=== PATIENT | female | born 1975 | race Caucasian/White ===

== ENCOUNTER 2018-01-17 18:49 | Observation (INO) | payer BC ==
[2018-01-17] MEDS ORDERED: Ondansetron INJ* 2 MG/ML VIAL IV ONE (19:56)
[2018-01-17] MEDS ORDERED: NS 0.9% 1000 ML* 1,000 ML IV ONE (19:56)
[2018-01-17] MEDS ORDERED: Morphine VIAL* 10 MG/ML 1 ML VIAL IV ONE (19:56)
--- NOTE | 2018-01-17 20:09 | ED ---
Abdominal Pain/Female - HPI Summary HPI Summary: Complains of right-sided abdominal pain, N/V 1 starting this morning. Abdominal pain described as new onset, constant, sharp, 7/10. Denies fever, cough, sore throat, CP, SOB, change in urine, change in BM, vaginal symptoms, . Medical history is none. Abdominal surgical history is none. - History of Current Complaint Chief Complaint: EDAbdPain Stated Complaint: ABD PAIN Time Seen by Provider: 01/17/18 19:47 Hx Obtained From: Patient Hx Last Menstrual Period: 2 weeks ago ?: No Onset/Duration: Sudden Onset Timing: Constant Severity Initially: Moderate Severity Currently: Moderate Pain Intensity: 8 Pain Scale Used: 0-10 Numeric Location: Discrete At: RUQ, Discrete At: RLQ Radiates: No Character: Sharp Alleviating Factor(s): Nothing Associated Signs and Symptoms: Positive: Negative Allergies/Adverse Reactions: Allergies Allergy/AdvReac Type Severity Reaction Status Date / Time No Known Drug Allergies Allergy See Comment Verified 01/18/18 00:44 Environmental/Seasonal Allergy Congestion Uncoded 01/27/17 11:10 Allergies PMH/Surg Hx/FS Hx/Imm Hx Endocrine/Hematology History: Denies: Hx Anticoagulant Therapy Cardiovascular History: Denies: Hx Cardiac Arrest History: Denies: Hx Dialysis Neurological History: Denies: Hx CVA Infectious Disease History: No Infectious Disease History: Denies: History Other Infectious Disease, Traveled Outside the [place] in Last 30 Days - Family History Known Family History: Positive: None - Social History Alcohol Use: Weekly Substance Use Type: Reports: None Smoking Status (MU): Never Smoked Tobacco Review of Systems Constitutional: Negative Eyes: Negative ENT: Negative Cardiovascular: Negative Respiratory: Negative Positive: Abdominal Pain, Vomiting, Nausea Genitourinary: Negative Musculoskeletal: Negative Skin: Negative Neurological: Negative Psychological: Normal All Other Systems Reviewed And Are Negative: Yes Physical Exam - Summary Physical Exam Summary: Tender in epigastrium, right upper quadrant, right lower quadrant. Triage Information Reviewed: Yes Vital Signs On Initial Exam: Initial Vitals Temp Pulse Resp BP Pulse Ox 97.5 F 66 16 120/66 99 01/17/18 18:51 01/17/18 18:51 01/17/18 18:51 01/17/18 18:51 01/17/18 18:51 Vital Signs Reviewed: Yes Appearance: Positive: Well-Appearing Skin: Positive: Warm Head/Face: Positive: Normal Head/Face Inspection Eyes: Positive: Normal Neck: Positive: Supple Respiratory/Lung Sounds: Positive: Clear to Auscultation Cardiovascular: Positive: Normal Abdomen Description: Positive: Other: Musculoskeletal: Positive: Normal Neurological: Positive: Normal Psychiatric: Positive: Normal AVPU Assessment: Alert - [place] Coma Scale Best Eye Response: 4 - Spontaneous Best Motor Response: 6 - Obeys Commands Best Verbal Response: 5 - Oriented Coma Scale Total: 15 Diagnostics - Vital Signs Vital Signs Temp Pulse Resp BP Pulse Ox 01/17/18 18:51 97.5 F 66 16 120/66 99 - Laboratory Result Diagrams: 01/17/18 20:11 01/17/18 20:11 Lab Statement: Any lab studies that have been ordered have been reviewed, and results considered in the medical decision making process. - CT ab/pel CT Interpretation Completed By: Radiologist - Positive for appendicitis otherwise unremarkable. - Ultrasound No standard instances Ultrasound Interpretation Completed By: Radiologist - Ultrasound gallbladder negative for cholelithiasis or Colee cystitis Abdominal Pain Fem Course/Dx - Course Course Of Treatment: Complains of right-sided abdominal pain, N/V 1 starting this morning. Abdominal pain described as new onset, constant, sharp, 7/10. Denies fever, cough, sore throat, CP, SOB, change in urine, change in BM, vaginal symptoms, . Medical history is none. Abdominal surgical history is none. Physical exam:Tender in epigastrium, right upper quadrant, right lower quadrant. Vital signs within normal limits. CT positive for appendicitis. Surgery Dr Armstrong will admit. - Diagnoses Provider Diagnoses: Appendicitis Discharge - Sign-Out/Discharge Documenting (check all that apply): Patient Departure - Discharge Plan Condition: Stable Disposition: ADMITTED TO [facility] - Billing Disposition and Condition Condition: STABLE Disposition: Admitted to [facility]
[2018-01-17 20:17] LABS: ABS Basophils 0 10^3/ul (0-0.2); ABS Eosinophils 0 10^3/ul (0-0.6); ABS Monocytes 0.5 10^3/ul (0-0.8); ABS Neutrophils 12.3 10^3/ul (1.5-7.7); ABS Nucleated RBC 0 10^3/ul; Eosinophil % 0.2 % (0-6); Hematocrit 37 % (35-47); Hemoglobin 12.8 g/dl (12.0-16.0); Mean Corpuscular HGB Conc 34 g/dl (31-36); Mean Corpuscular Hemoglobin 33 pg (27-31); Mean Corpuscular Volume 96 fL (80-97); Mean Platelet Volume 7.5 um3 (7.4-10.4); Nucleated Red Blood Cells % 0; Platelet Count 240 10^3/ul (150-450); Red Blood Count 3.89 10^6/ul (4.00-5.40); Red Cell Distribution Width 12 % (10.5-15); White Blood Count 13.7 10^3/ul (3.5-10.8)
[2018-01-17 20:36] LABS: EGFR Non-African American 64.2 (>60)
[2018-01-17] MEDS ORDERED: Iohexol 300* (CONTRAST) 10 ML SDV IV ONE (20:40)
[2018-01-17] MEDS ORDERED: Morphine INJ* 4 MG/ML 1 ML SYRINGE (NEW SYRINGE VERSION) ONE (20:57)
[2018-01-17] MEDS ORDERED: Morphine INJ* 4 MG/ML 1 ML SYRINGE (NEW SYRINGE VERSION) IV ONE (21:04)
--- NOTE | 2018-01-17 21:26 | RAD ---
EXAM: US Abdomen Limited, Right Upper Quadrant EXAM DATE/TIME: 01/17/2018 8:37 PM CLINICAL HISTORY: 42 years old, female; Pain; Abdominal pain; Acute; Additional info: Ruq pain, + murphys TECHNIQUE: Real-time ultrasound of the abdomen with image documentation. Examination was focused on the right upper quadrant. COMPARISON: [facility] CT VIRTUAL COLONOSCOPY DIAGNOS 11/19/2014 2:08 PM FINDINGS: Liver: Normal. No masses. Gallbladder: Normal gallbladder without stones or sludge. Wall thickness measures 2.2 mm. Technologist reports no patient pain when imaged over the gallbladder. Common bile duct: Common bile duct measures 2.3 mm. Pancreas: Pancreas unremarkable as visualized. Right kidney: Right kidney measures 9.0 x 3.6 x 4.7 cm. No mass or hydronephrosis. Aorta: Normal aorta. Inferior vena cava: Normal inferior vena cava. IMPRESSION: Normal right upper quadrant ultrasound. To contact [facility] with a general question: [facility] - [phone] For direct physician to physician contact: Physician Hotline - [phone] [facility] ([facility] Facility ID #[id number])
[2018-01-17 21:41] LABS: Urine Appearance Cloudy; Urine Blood Negative (Negative); Urine Color Yellow; Urine Ketones 1+ (Negative); Urine Protein Negative (Negative); Urine Specific Gravity 1.018 (1.010-1.030); Urine Urobilinogen Negative (Negative)
--- NOTE | 2018-01-17 22:11 | RAD ---
EXAM: CT Abdomen and Pelvis With Intravenous Contrast EXAM DATE/TIME: 01/17/2018 9:16 PM CLINICAL HISTORY: 42 years old, female; Pain; Abdominal pain; Additional info: Rlq pain TECHNIQUE: Axial computed tomography images of the abdomen and pelvis with intravenous contrast. All CT scans at this facility use at least one of these dose optimization techniques: automated exposure control; mA and/or kV adjustment per patient size (includes targeted exams where dose is matched to clinical indication); or iterative reconstruction. Coronal and sagittal reformatted images were created and reviewed. CONTRAST: 119 ml of OMNIPAQUE 300 administered intravenously. COMPARISON: [facility] CT VIRTUAL COLONOSCOPY DIAGNOS 11/19/2014 2:08 PM FINDINGS: Lower thorax: No acute findings. ABDOMEN: Liver: Normal. No mass. Gallbladder and bile ducts: Normal. No calcified stones. No ductal dilation. Pancreas: Normal. No ductal dilation. Spleen: Normal. No splenomegaly. Adrenals: Normal. No mass. Kidneys and ureters: Normal. No hydronephrosis. Stomach and bowel: Normal. No obstruction. No mucosal thickening. Appendix: Dilated retrocecal appendix with multiple appendicoliths and inflammatory changes in the adjacent mesentery. PELVIS: Bladder: Unremarkable as visualized. Reproductive: Unremarkable as visualized. ABDOMEN and PELVIS: Intraperitoneal space: Normal. No free air. No significant fluid collection. Bones/joints: No acute fracture. No dislocation. Soft tissues: Unremarkable. Vasculature: Normal. No abdominal aortic aneurysm. Lymph nodes: Normal. No enlarged lymph nodes. IMPRESSION: Acute appendicitis without perforation or abscess. To contact [facility] with a general question: [facility] - [phone] For direct physician to physician contact: Physician Hotline - [phone] [facility] ([facility] Facility ID #[id number])
[2018-01-18] MEDS ORDERED: Ondansetron INJ* 2 MG/ML VIAL IV PRN ×2 (00:18→09:50)
[2018-01-18] MEDS ORDERED: NS 0.9% 1000 ML* 1,000 ML IV SCH (00:30)
[2018-01-18] MEDS ORDERED: Piperacillin/Tazobac (*) 3.375 GM BAG ONE (00:53)
[2018-01-18] MEDS ORDERED: Piperacillin/Tazobactam VIAL*) 3.375 GM in NS 0.9% 100 ML* 100 ML IVPB SCH (01:00)
[2018-01-18] MEDS: HYDROmorphone INJ1* 1 MG/ML SYRINGE IV PRN ×2 (01:33→06:08)
[2018-01-18] MEDS ORDERED: Midazolam* 1 MG/ML 2 ML VIAL (2 MG) ONE (08:49)
[2018-01-18] MEDS ORDERED: fentaNYL* 50 MCG/ML 2 ML VIAL (100 MCG VIAL) ONE (08:49)
[2018-01-18] MEDS ORDERED: Lidocaine 2% PF * 5 ML VIAL ONE (09:08)
[2018-01-18] MEDS ORDERED: Mivacurium Chloride* 20 MG/10 ML VIAL IV ONE (09:09)
[2018-01-18] MEDS ORDERED: Dexamethasone IV* 4 MG/ML 1 ML (4 MG) ONE ×2 (09:09→09:29)
[2018-01-18] MEDS ORDERED: Propofol* 10 MG/ML 20 ML BTL IV PUSH ONE (09:09)
[2018-01-18] MEDS ORDERED: Famotidine IV* 10 MG/ML 2 ML (20 mg) ONE (09:09)
[2018-01-18] MEDS ORDERED: Bupivacaine 0.25% W/EPI* 10 ML SDV ONE (09:26)
[2018-01-18] MEDS ORDERED: EPHEDrine (Pressors)* 50 MG/ML VIAL ONE (09:37)
[2018-01-18] MEDS ORDERED: Buffered Lidocaine 0.9% SYRIN* 5 ML/SYR SYRINGE INTRADERM ONE (09:50)
[2018-01-18] MEDS ORDERED: diPHENhydraMINE IV* 50 MG/ML 1 ml VIAL (BENADRYL) IV PRN (09:50)
[2018-01-18] MEDS ORDERED: Acetaminophen TAB* 325 MG PO PRN (09:50)
[2018-01-18] MEDS ORDERED: Naloxone* 0.4 MG/ML 1 ML VIAL IV PRN (09:50)
[2018-01-18] MEDS ORDERED: HYDROcodone/ACETAMIN 5-325 MG* 1 TAB PO PRN (09:50)
[2018-01-18] MEDS ORDERED: DiMENhydriNATE IV* 50 MG/ML VIAL IV PUSH PRN (09:50)
[2018-01-18] MEDS ORDERED: fentaNYL* 50 MCG/ML 2 ML VIAL (100 MCG VIAL) IV PRN (09:50)
[2018-01-18] MEDS ORDERED: PROCHLORPERAZINE INJ 5 MG/ML 2 ML VIAL IV PRN (09:50)
[2018-01-18] MEDS ORDERED: Ondansetron INJ* 2 MG/ML VIAL ONE (10:04)
[2018-01-18] MEDS ORDERED: Ketorolac INJ* 30 MG/ML 1 ML VIAL ONE (10:04)
--- NOTE | 2018-01-18 10:29 | BRIEFOPN ---
Brief Operative Note - Surgery Procedures: OPERATIVE REPORT PRE-OP: Acute appendicitis POST-OP: Acute gangrenous appendicitis PROCEDURE: Laparoscopic appendectomy SURGEON: MD Babs ANESTHESIA:Local with General, Dr. Gill ASST: none IVF:1 liter of crystalloid EBL:min SPECIMEN:appendix DRAIN: none WOUND CLASS:3 COMPLICATIONS: none TO PACU
[2018-01-18 10:50] VITALS: BP 111/58
[2018-01-18] MEDS ORDERED: Acetaminophen TAB* 325 MG ONE (11:03)
--- NOTE | 2018-01-18 14:03 | HP ---
CC: [facility]; [facility] [place] * HISTORY AND PHYSICAL: DATE OF ADMISSION: 01/18/18 CHIEF COMPLAINT: Right lower quadrant abdominal pain. HISTORY OF PRESENT ILLNESS: Ms. Elba Roper is a healthy 42-year-old woman presented to the emergency room last night with 16 hours of abdominal pain becoming progressively worse and localized in the right lower quadrant. She had no fevers and was anorexic, has had minimal oral intake. She has had no change in bowel habits including diarrhea or urinary complaints. In the emergency room, she was noted to have right lower quadrant abdominal pain and an elevated white blood cell count to 13,000. test was normal and the remainder of her laboratory workup was unremarkable. She underwent a CAT scan of the abdomen and pelvis, which showed findings consistent with acute appendicitis without evidence of abscess or perforation. Surgical consultation was obtained. PAST MEDICAL HISTORY: Unremarkable. PAST SURGICAL HISTORY: None. MEDICATIONS: None. ALLERGIES: She has no known drug allergies. SOCIAL HISTORY: She is , has two young children. 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 She is . REVIEW OF SYSTEMS: Otherwise unremarkable. PHYSICAL EXAMINATION GENERAL: She is a well-developed, well-nourished female, normal attention to grooming, in no apparent distress. VITAL SIGNS: She is afebrile. LUNGS: Clear to auscultation with normal respiratory effort. HEART: Regular rate and rhythm without murmurs, rubs or gallops. ABDOMEN: Soft and nondistended. No prior surgical incisions. No hernias. She had diminished bowel sounds throughout. She has tenderness in the right lower quadrant with voluntary guarding and rigidity. There is no generalized peritoneal irritation. PSYCHIATRIC: She is awake, alert, and oriented x3. She has normal judgment and insight. IMPRESSION: Acute appendicitis. PLAN: Laparoscopic appendectomy today. I discussed the history, workup and the findings on the CT scan with the patient , then to her . I discussed the possible treatment options for acute appendicitis including nonoperative management with IV and subsequent oral antibiotics. She does appear to have an appendicolith or two on the CT scan and I do not recommend treating this with IV and oral antibiotics alone, as I think this will have a high failure rate and also emphasized to her that here in [facility] our standard of care is laparoscopic appendectomy. We also discussed the surgical option. After our discussion, they would like to proceed with surgery. The laparoscopic appendectomy was explained to them and the risks of, but not limited to bleeding, infection, intraabdominal abscess formation, injury to peritoneal and retroperitoneal structures, possibility of other surgical indicated procedures that may need to be performed depending on clinical findings, the risks of anesthesia, deep vein thrombosis, and pulmonary embolism were discussed. In addition, possible hospital stays and recovery times were discussed. [id number]/[facility] #: [id number] MTDBrandon
--- NOTE | 2018-01-19 04:00 | OP ---
CC: [facility] * DATE OF OPERATION: 01/18/18 - ROOM #342 DATE OF : 73 SURGEON: Terrell Brice MD [employer] TUTOR: None. ANESTHESIOLOGIST: Dr. Gill. ANESTHESIA: General with local. PRE-OP DIAGNOSIS: Acute appendicitis. POST-OP DIAGNOSIS: Acute gangrenous appendicitis. OPERATIVE PROCEDURE: Laparoscopic appendectomy. ESTIMATED BLOOD LOSS: Minimal. IV FLUIDS: 1 L of crystalloids. DRAINS: None. WOUND CLASSIFICATION: 3. SPECIMEN: Appendix. FINDINGS: There was some superficial gangrenous change at the appendix, but no evidence of perforation or abscess. BRIEF HISTORY: Ms. Elba Roper is a 42-year-old woman, presented to the emergency room with 16 hours of severe right lower quadrant abdominal discomfort. He had mild elevation of white blood cell count and tenderness in the right lower quadrant. A CAT scan confirmed acute appendicitis. DESCRIPTION OF PROCEDURE: Written informed consent was obtained, preoperative antibiotics were administered and the abdomen was marked with indelible ink. She was taken to the operating room and placed in a supine position. Sequential compression devices and warming blanket were applied. General anesthesia was administered and the abdomen was prepped and draped in the usual sterile fashion. A time-out verification was completed. Initially, a small transverse incision was made just below the umbilicus and using open technique, the peritoneal cavity was entered under direct vision. A 12-mm port was inserted and the abdomen was insufflated to 15 mmHg. Under direct vision, a 5-mm port was placed in the left lower abdominal wall and a second 5-mm suprapubic port was placed. There was a small amount of turbid fluid in the pelvis in the right lower quadrant, which was irrigated and suctioned. The appendix was identified along the lateral gutter. It had some mild early gangrenous greyish discoloration consistent with gangrenous change and apparent demarcation whether there may have been an appendicolith about the proximal third of the appendix but the base of the appendix and the cecum were normal. It was completely intraperitoneal. The mesoappendix was divided sequentially using the LigaSure device. I used a yan load of 30 mm Endo-DINH stapler to divide the appendix at its base with the cecum and it was removed in an Endo Catch bag through the umbilical incision. The staple line was intact without evidence of bleeding. Her abdomen was irrigated thoroughly with saline. All ports were removed under vision of the camera. There was no abdominal wall bleeding. The umbilical fascia was closed with interrupted 0 Vicryl suture. The skin was approximated with subcuticular 4 -0 Vicryl suture. Steri-Strips were applied. Patient tolerated the procedure well and was taken to the recovery room in stable condition. [id number]/[facility] #: [id number] MTDD
== END 2018-01-18 12:15 | disposition home or self-care (01) ==
LOC: ED 18:49 → SSU 01-18 00:18
PROVIDERS: ADMIT Surgery; ATTEND Surgery
DX: K35.20 Acute appendicitis with generalized peritonitis, without abscess (principal); R10.11 Right upper quadrant pain; R11.2 Nausea with vomiting, unspecified
CPT/HCPCS: 36415; 74177; 76705; 80053; 81003; 83690; 84702; 85025; 86140; 88304; 96365; 96375; 99282; A9270-GY; G0378; J1100; J1170; J1885; J2250; J2270; J2405; J2543; J2704; J3010; Q9967